=== PATIENT | female | born 1995 | race Caucasian/White ===

== ENCOUNTER 2017-01-21 21:16 | Outpatient (CLI) | payer OTHER ==
[~2017-01-21] VITALS: Ht 157.5 cm; Wt 86.8 kg
[2017-01-21 21:50] VITALS: Ht 157.5 cm; Wt 86.8 kg
--- NOTE | 2017-01-21 22:12 | RADRPT ---
PROCEDURE: US biophysical profile. CLINICAL INDICATION: Decreased motion. TECHNIQUE: Multiple sonographic images of the uterus were obtained. The images were revi ewed on a PACS workstation. COMPARISON: No prior studies are available for comparison. FINDINGS: There is a single live intrauterine gestation. heart rate is 179 beats per minute. The position is cephalic. The placenta is posterior grade II with no abruption or previa. The DAWN is 12.2 cm. (Normal = 5-20 cm.) Breathing Movement: 2 Gross Body Movement: 2 Tone: 2 Qualitative Amniotic Fluid Volume: 2 TOTAL: 8 IMPRESSION: 1. The biophysical score is 8/8. RPTAT: QQ .Angel Collier MD, MD Date Time Electronically viewed and signed by .Angel Collier MD, on 01/21/2017 22:11 .R/
--- NOTE | 2017-01-21 23:24 | PN ---
Triage Information Date/Time Reason for visit: DFM Weeks of Gestation 35 weeks /Para Diabetes: none Hypertention: none Objective Heart Rate: 120's Heart Rate Comments Category I Contractions: None Results/Medications Imaging Results BPP 01/02 DAWN 12.2 Disposition: Discharge Assessment/Plan Antepartum Testing Reassuring. While being monitored, patient feels the baby move. kick count. D/C home. Follow up in clinic. AV CROCKETT MD Jan 21, 2017 23:24
== END 2017-01-21 23:30 | disposition home or self-care (01) ==
LOC: OBT 21:16 → L-D 21:17 → OBT 23:30
PROVIDERS: ATTEND Obstetrics & Gynecology
DX: O36.8130 Decreased fetal movements, third trimester, not applicable or unspecified (principal); Z3A.35 35 weeks gestation of pregnancy
CPT/HCPCS: 76818; Z7500; G0463

== ENCOUNTER 2017-02-18 12:39 | Inpatient (IN) | payer OTHER ==
[~2017-02-18] VITALS: Ht 157.5 cm; Wt 86.3 kg
[2017-02-18 12:49] VITALS: Ht 157.5 cm; Wt 86.3 kg
[2017-02-18 12:50] VITALS: BP 122/58; PULSE 76; RESP 19
[2017-02-18] MEDS ORDERED: LACTATED RINGER'S 1,000 ML IV SCH ×3 (12:52→12:55)
[2017-02-18] MEDS ORDERED: PREN-93 PO (12:59)
[2017-02-18] MEDS ORDERED: LACTATED RINGER'S 1,000 ML IV PRN (13:00)
[2017-02-18] MEDS ORDERED: BUTORPHANOL 2 MG INJ IV PRN (13:00)
[2017-02-18] MEDS ORDERED: CARBOPROST 250 MCG INJ IM PRN ×3 (13:00→20:30)
[2017-02-18] MEDS ORDERED: HYDROCODONE/APAP (5/325) TAB PO PRN (13:00)
[2017-02-18] MEDS ORDERED: METHYLERGONOVINE 0.2 MG INJ IM PRN ×3 (13:00→20:30)
[2017-02-18] MEDS ORDERED: LIDOCAINE 1% (MPF) 30 ML INJ INJ PRN ×3 (13:00)
[2017-02-18] MEDS ORDERED: OXYTOCIN 30 UNITS/LR 500 ML IV PRN ×3 (13:00→20:30)
[2017-02-18] MEDS ORDERED: AMPICILLIN 2 GM/NS (PMX) 100 ML IV ONE (13:00)
[2017-02-18] MEDS ORDERED: OXYTOCIN 30 UNITS/LR 500 ML IV SCH ×2 (13:00)
[2017-02-18] MEDS ORDERED: MISOPROSTOL 200 MCG TAB PR PRN ×3 (13:00→20:30)
[2017-02-18 13:32] LABS: BASOPHILS % 0.2 % (0.0-2.0); EOSINOPHILS % 0.5 % (0.0-7.0); HEMOGLOBIN 11.2 g/dl (12.0-16.0); LYMPHOCYTES % 12.3 % (15.0-51.0); MEAN CORPUSCULAR HEMOGLOBIN 24.6 pg (29.0-33.0); MEAN CORPUSCULAR VOLUME 76.9 fl (82.0-101.0); MEAN PLATELET VOLUME 9.7 fl (7.4-10.4); MONOCYTE # 0.6 10^3/ul (0.3-0.9); MONOCYTES % 7.2 % (0.0-11.0); NEUTROPHIL # 6.5 10^3/ul (1.6-7.5); NEUTROPHILS % 79.6 % (39.0-77.0); PLATELET COUNT 279 10^3/UL (140-415); RED BLOOD COUNT 4.55 10^6/ul (4.20-5.40); WHITE BLOOD COUNT 8.2 10^3/ul (4.8-10.8)
[2017-02-18 13:46] LABS: INR 1.01; PROTIME 13.3 Sec (12.2-14.2)
[2017-02-18 13:47] LABS: PARTIAL THROMBOPLASTIN TIME 28.1 Sec (25.0-35.0)
[2017-02-18] MEDS ORDERED: CLINDAMYCIN 900 MG/D5W (PMX) 50 ML IV SCH (14:00)
[2017-02-18] MEDS ORDERED: FENTAnyl 2MCG/ML-ROPIV 0.2% 100 ML ONE (14:18)
[2017-02-18] MEDS ORDERED: NALOXONE (0.4 MG/ML) INJ IV PRN (15:00)
[2017-02-18] MEDS ORDERED: FENTAnyl 2MCG/ML-ROPIV 0.2% 100 ML BAG EPI SCH (15:00)
[2017-02-18] MEDS ORDERED: INFLUENZA VIRUS VACCINE 0.5 ML SYG IM* ONE (17:00)
--- NOTE | 2017-02-18 18:34 | HP ---
Date/Time of Note Date/Time of Note DATE: 02/18/17 TIME: 18:30 OB - History Hx of Present Free Text/Dictation 21 y.o at 39w5d in active labor with intact membrane initial exma 5/90%/-1 admitted for expectant management Chief Complaint: u.c Estimated Due Date: Feb 20, 2017 : 2 Para: 1 Spontaneous : 0 Therapeutic : 0 Care: Good Care Ultrasounds: Normal mid trimester US Obstetrical Complications: None Medical Complications: None Past Family/Social History * Past Medical, Surgical, Family and Obstetric Histories reviewed from chart. Blood Type: O+ Rubella: immune RPR/VDRL: Negative GBS Status: Unknown HBsAG: Negative OB Admission Exam Vital Signs Vital Signs Vital Signs Date Time Temp Pulse Resp B/P Pulse Ox O2 Delivery O2 Flow Rate FiO2 02/18/17 12:50 98.1 76 19 122/58 99 Room Air Physical Exam HEENT: WNL Heart: Rhythm Normal Lungs: Clear, Equal Abdomen: WNL Extremities: Normal Reflexes: Normal Cervical Dilatation: 5cm Effacement: Other (90%) Station: -1 Membranes: Intact Amniotic Fluid: Unevaluable Heart Rate: 140's Accelerations: Accelerations Present Decelerations: No Decelerations Contractions on Admission: < 5 Minutes Apart Intensity: Mild Last 72 hours Lab Results CBC & BMP 02/18/17 13:16 OB Assessment/Plan Other Assessment: [id number] Plan: Expectant Management BREEZY CRUZ MD Feb 18, 2017 18:34
--- NOTE | 2017-02-18 18:37 | LDN ---
Date/Time of Note Date/Time of Note DATE: 02/18/17 TIME: 18:35 Delivery Summary Weeks of Gestation 39w6d Placenta Delivered: Spontaneously Meconium: none Episiotomy: No Perineal laceration: 0 Anesthesia type: Epidural Estimated blood loss: 200 Sponge & Needle done & correct: Yes All needle counts correct: Yes Any foreign bodies felt in the: No Problems: Infant Delivery Information Sex Infant Sex: male Apgars 1 Minute: 9 5 Minute: 9 Suctioning Nose & mouth suctioned at alexander: Yes Delee suction performed: No Umbilical Cord Umbilical cord with: 3 Vessels Cord presentations: no nuchal cord Cord Blood was obtained: Yes Mother & Baby Disposition Disposition Mom & Baby to Maternity; Good: Yes Mom transferred to: Other (p.p) Baby to NICU: No BREEZY CRUZ MD Feb 18, 2017 18:36
[2017-02-18 20:25] VITALS: BP 111/58; PULSE 70; RESP 18
[2017-02-18] MEDS ORDERED: WITCH HAZEL/GLYCERIN PAD PR PRN (20:30)
[2017-02-18] MEDS ORDERED: LANOLIN 7 GM TUBE TOP PRN (20:30)
[2017-02-18] MEDS ORDERED: OXYCODONE/ASPIRIN (4.88/325) TAB PO PRN ×2 (20:30)
[2017-02-18] MEDS ORDERED: BENZOCAINE 20% 56 ML SPRAY TOP PRN (20:30)
[2017-02-18] MEDS ORDERED: ZOLPIDEM 5 MG TAB PO PRN (20:30)
[2017-02-18] MEDS: SENNA/DOCUSATE NA (8.6MG/50MG) TAB PO SCH (22:35)
[2017-02-18 23:45] VITALS: BP 110/60; PULSE 78; RESP 18
[2017-02-19] MEDS: IBUPROFEN 600 MG TAB PO SCH ×4 (05:40→17:47)
[2017-02-19 08:10] VITALS: BP 105/55; PULSE 77; RESP 19
[2017-02-19] MEDS: SENNA/DOCUSATE NA (8.6MG/50MG) TAB PO SCH ×2 (09:13→21:31)
[2017-02-19 09:58] LABS: BASOPHILS % 0.2 % (0.0-2.0); EOSINOPHILS # 0.1 10^3/ul (0.0-0.5); EOSINOPHILS % 0.6 % (0.0-7.0); HEMATOCRIT 32.3 % (37.0-47.0); HEMOGLOBIN 10.1 g/dl (12.0-16.0); LYMPHOCYTES # 1.6 10^3/ul (0.8-2.9); LYMPHOCYTES % 15.9 % (15.0-51.0); MEAN CORPUSCULAR HEMOGLOBIN 24.1 pg (29.0-33.0); MEAN CORPUSCULAR HGB CONC 31.3 g/dl (32.0-37.0); MEAN CORPUSCULAR VOLUME 77.1 fl (82.0-101.0); MEAN PLATELET VOLUME 9.9 fl (7.4-10.4); MONOCYTE # 0.5 10^3/ul (0.3-0.9); MONOCYTES % 4.5 % (0.0-11.0); NEUTROPHILS % 78.3 % (39.0-77.0); PLATELET COUNT 240 10^3/UL (140-415); RED BLOOD COUNT 4.19 10^6/ul (4.20-5.40); RED CELL DISTRIBUTION WIDTH 16.2 % (11.5-14.5); WHITE BLOOD COUNT 10.2 10^3/ul (4.8-10.8)
[2017-02-19 15:30] VITALS: BP 124/58; PULSE 76; RESP 19
[2017-02-19 20:00] VITALS: BP 110/55; PULSE 67; RESP 18
--- NOTE | 2017-02-19 21:10 | PN ---
Date/Time of Note Date/Time of Note DATE: 02/19/17 TIME: 21:08 OB Subjective Subjective Subjective no c/o had bowel movement OB Objective Objective Objective vss afebrile fundus firm lochia min calf neg for tenderness OB Assessment/Plan Other Assessment: stable ppd#1 Other plan: d/s home in am BREEZY CRUZ MD Feb 19, 2017 21:10
[2017-02-20 04:30] VITALS: BP 101/58; PULSE 69; RESP 18
[2017-02-20] MEDS: IBUPROFEN 600 MG TAB PO SCH ×4 (06:00→18:00)
[2017-02-20 08:00] VITALS: BP 107/53; PULSE 70; RESP 18
[2017-02-20] MEDS ORDERED: DIPHTH/TET/ACEL PERTUSS (ADULT) 0.5 ML VIAL IM* ONE (09:00)
[2017-02-20] MEDS: SENNA/DOCUSATE NA (8.6MG/50MG) TAB PO SCH (09:00)
[2017-02-20 14:08] LABS: RUBELLA ANTIBODY - IGG 0.96 index
[2017-02-20 16:10] VITALS: BP 97/58; PULSE 70; RESP 18
--- NOTE | 2017-02-20 17:40 | PD.PPDC ---
RADIO ANNOUNCER Discharge Instruction Diagnosis Final Diagnosis: s/p normal vaginal delivery Condition Patient Condition: Stable Diet Diet: Resume Regular Diet Activity/Restrictions Activity: May Shower Restrictions: No Lifting Nothing in the Vagina No [place] No Tampons, douche Follow-up Follow-up with Physician: 2, Week/Weeks Return to clinic for [facility] [employer] [facility] Instructions: Fever greater than 101 Chills Worsening abdominal pain Excessive Vaginal Bleeding More than 2 pads per hour Unable to tolerate diet OB Instructions: Breast Tenderness Depression Blurried Vision BREEZY CRUZ MD Feb 20, 2017 17:40
--- NOTE | 2017-02-20 17:43 | DS ---
Date/Time of Note Date/Time of Note DATE: 02/20/17 TIME: 17:42 Obstetrical Discharge Record Final Diagnosis Final Diagnosis: Term delivered Vaginal Delivery Obstetrical Delivery: Spontaneous Complications Augmentation: Yes Rupture of Membranes: No Condition on Discharge Physical Assessment Last Vitals: vss afebrile f Voiding: Yes Bowel Movement: Yes Breast: Soft, non-tender Fundus: Firm Calf Tenderness: No Patient Condition: Stable BREEZY CRUZ MD Feb 20, 2017 17:43
== END 2017-02-20 18:35 | disposition home or self-care (01) | DRG 775 ==
LOC: OBT 12:39 → L-D 12:40 → OBT 12:47 → PP1 20:33
PROVIDERS: ADMIT Obstetrics & Gynecology; ATTEND Obstetrics & Gynecology
PROC: 10E0XZZ Delivery of Products of Conception, External Approach (ICD-10-PCS; principal; 2017-02-18)
DX: O80 Encounter for full-term uncomplicated delivery (principal); Z37.0 Single live birth; Z3A.39 39 weeks gestation of pregnancy
CPT/HCPCS: 62319; 85025; 85610; 85730; 86592; 86703; 86762; 86900; 86901; 87340; 90686; 90715; G0463; J2590; J3010; J7120